=== PATIENT | female | born 1990 | race Two or more races ===

== ENCOUNTER 2023-08-20 10:38 | Emergency (ER) | payer OTHER, SELFPAY ==
[2023-08-20 10:39] VITALS: BMI 18.0
[2023-08-20 10:42] VITALS: BP 117/78
--- NOTE | 2023-08-20 11:21 | ED.GENMED ---
Addendum entered and electronically signed by Chloe Ribeiro PA-C 08/23/23 18:05:
08/23/23: Vaginal culture results noted. Positive for group B strep. Patient with negative test at visit. No indication for treatment at this time.
Original Note:
History of Present Illness
<Chloe Ribiero PA-C - Last Filed: 08/20/23 17:41>
General
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
Source: patient
Exam Limitations: none
Time Seen by Provider: 08/20/23 11:04
Nursing documentation reviewed up to this point in time: agreed with
Travel History
Have you had any contact with someone who has COVID-19?: No
Do you have any symptoms of coronavirus? Fever > 100 degrees, chills, cough, shortness of breath, sore throat, loss of taste or smell, muscle aches, or headache?: No
History of Present Illness
History of Present Illness:
Patient is a 33-year-old female with history of tubal ligation presenting for evaluation of vaginal discomfort. Patient states that intermittently over the past 2 months she has had vaginal pain worse after intercourse. Last night around 12AM,
during intercourse with her she reports onset of pain which has been constant since. She describes it as a squeezing and sharp pain within the vagina with some radiation to her back. Patient does also endorse recent change in quantity and
quality of vaginal discharge. She has noticed an odor associated with discharge and vaginal itching. Patient denies any abnormal vaginal bleeding. In addition, she has noticed recent urinary frequency and urgency. Patient denies any fever, chills,
abdominal pain. Patient denies any nausea, vomiting, diarrhea.
Patient is monogamous with her . No history of STDs.
Patient was last seen by her OBGYN about 1 year ago.
Past History
<Chloe Ribeiro PA-C - Last Filed: 08/20/23 17:41>
Past History
ED Past Medical History: None
ED Past Surgical History:
Social History
Tobacco: Non-smoker
Alcohol: None
Drug: None
Personal:
Living: with family
Review of Systems
<Chloe Ribeiro PA-C - Last Filed: 08/20/23 17:41>
Review of Systems
Allergies reviewed?: Yes
All Other Systems: ROS reviewed and negative except as documented in HPI and ROS
Phy Exam
<Chloe Ribeiro PA-C - Last Filed: 08/20/23 17:41>
Physical Exam
Physical Exam:
Vitals: Patient's vital signs are stable. Afebrile
General: Patient is well appearing, no acute distress
Skin: Warm and dry, no rashes or lesions
Head: Normocephalic, atraumatic
Eyes: Sclera nonicteric. EOMs intact. No nystagmus.
Throat: Protecting airway
Neck: Normal ROM, no cervical spine tenderness, no meningismus
Cardiac: Regular rate and rhythm, no murmurs.
Pulm: Normal respiratory effort, no wheezes, rales, rhonchi heard on exam.
Abdomen: Abdomen soft. very mild tenderness in suprapubic region without rebound tenderness or guarding. No CVA tenderness
Pelvic: Mild discomfort throughout pelvic examination without any true cervical motion tenderness. Copious thin odom vaginal discharge. Cervix closed otherwise no abnormalities. No surrounding vulvar erythema or edema.
Extremities: No evidence of cyanosis or edema. DP pulses palpable and equal bilaterally
Neuro: AAOx3. CN II-XII intact. No focal neurologic deficits.
Psychiatric: Normal affect.
Course
<Chloe Ribeiro PA-C - Last Filed: 08/20/23 17:41>
Orders/Labs/Results
Orders:
Orders
08/20/23 11:34
Test Result ONCE
05/19/24 11:36
Ketorolac [Toradol] 15 mg IM NOW STA
US Pelvis W Transvag Combined Urgent
Comment:
Reason For Exam: Pelvic pain
08/20/23 11:44
Test Result ONCE
08/20/23 12:25
HCG, Urine Qualitative Screen Urgent
Date Specimen was Collected: 08/20/23
Time Specimen was Collected: 12:17
Urinalysis Reflex To Culture Urgent
Date Specimen was Collected: 08/20/23
Time Specimen was Collected: 12:18
Chlamydia/GC by PCR Urgent
MEI Source: Endo-Cervical
Specimen Description:
Source:: ENDOCERVICAL
Date Specimen was Collected: 08/20/23
Time Specimen was Collected: 12:17
Genital Culture Urgent
MEI Source: Vagina
Specimen Description:
Date Specimen was Collected: 08/20/23
Time Specimen was Collected: 12:17
08/20/23 14:32
MetroNIDAZOLE [Flagyl] 500 mg PO NOW STA
Vital Signs
Initial and Last Documented VS:
Initial Vital Signs
Temp Pulse Resp BP Pulse Ox
98.8 F 62 20 117/78 100
08/20/23 10:42 08/20/23 10:42 08/20/23 10:42 08/20/23 10:42 08/20/23 10:42
Last Documented Vital Signs
Temp Pulse Resp BP Pulse Ox
98.8 F 62 20 117/78 99
08/20/23 10:42 08/20/23 10:42 08/20/23 10:42 08/20/23 10:42 08/20/23 14:15
Dorothylt;Constantino Valles DO - Last Filed: 08/20/23 12:52>
Orders/Labs/Results
Orders:
Orders
08/20/23 11:34
Test Result ONCE
08/20/23 11:36
Ketorolac [Toradol] 15 mg IM NOW STA
US Pelvis W Transvag Combined Urgent
Comment:
Reason For Exam: Pelvic pain
08/20/23 11:44
Test Result ONCE
08/20/23 12:25
HCG, Urine Qualitative Screen Urgent
Date Specimen was Collected: 08/20/23
Time Specimen was Collected: 12:17
Urinalysis Reflex To Culture Urgent
Date Specimen was Collected: 08/20/23
Time Specimen was Collected: 12:18
Chlamydia/GC by PCR Urgent
MEI Source: Endo-Cervical
Specimen Description:
Source:: ENDOCERVICAL
Date Specimen was Collected: 08/20/23
Time Specimen was Collected: 12:17
Genital Culture Urgent
MEI Source: Vagina
Specimen Description:
Date Specimen was Collected: 08/20/23
Time Specimen was Collected: 12:17
08/20/23 14:32
MetroNIDAZOLE [Flagyl] 500 mg PO NOW STA
Vital Signs
Initial and Last Documented VS:
Initial Vital Signs
Temp Pulse Resp BP Pulse Ox
98.8 F 62 20 117/78 100
08/20/23 10:42 08/20/23 10:42 08/20/23 10:42 08/20/23 10:42 08/20/23 10:42
Last Documented Vital Signs
Temp Pulse Resp BP Pulse Ox
98.8 F 62 20 117/78 99
08/20/23 10:42 08/20/23 10:42 08/20/23 10:42 08/20/23 10:42 08/20/23 14:15
<Chloe Ribeiro PA-C - Last Filed: 08/20/23 17:41>
MDM/Problems Addressed
Differential Diagnosis Includes:
Not limited to: UTI, pyelonephritis, bacterial vaginosis, GC/Chlamydia, PID, tubo-ovarian abscess, ectopic , endometriosis, uterine fibroids
MDM/Problems Addressed:
Patient is a 33 year old female presenting with vaginal discomfort and associated changes in vaginal discharge. Patient with both pain, itching, increasing amount of vaginal discharge with associated odor. Also mentions some urinary frequency.
Patient is monogamous relation with her . No history of STDs. No fever, chills, abdominal pain. Vital signs are stable. She is afebrile. Patient is generally well-appearing, nontoxic. Physical exam as above. On pelvic exam - there is a
copious amount of thin odom vaginal discharge noted. Clinically suspicious for bacterial vaginosis in setting of symptoms. Vaginal culture and endocervical swab obtained and sent to lab. Do not suspect gonorrhea or chlamydia. Given urinary
symptoms we will check urinalysis and ultrasound. Toradol for pain. Patient very minimally tender and nontoxic-appearing�do not suspect tubo-ovarian abscess.
1:15PM: In to reassess patient at bedside. Nurse also at bedside administering IM Toradol. Will reassess shortly
2:10 PM: In to reassess patient at bedside. Much more comfortable following toradol. Just returned from US - report pending. Urinalysis noted. test negative clear urine with no evidence of infection or contamination.
Ultrasound shows no evidence of acute abnormality in pelvis. Flow documented to both ovaries. Patient does remain more comfortable and in no apparent distress following Toradol. Although culture pending�high clinical suspicion for bacterial
vaginosis. Will prophylactic treat with metronidazole. Patient aware of interaction with alcohol and will avoid. Patient will follow-up with [facility] this week. Stable for discharge. All questions answered. Return precautions discussed at length.
Chronic conditions affecting care:
History of tubal ligation
Acute Exacerbation and/or Progression of Chronic Illness:
N/A
<Chloe Ribeiro PA-C - Last Filed: 08/20/23 17:41>
*Radiology
Radiology exam reviewed: radiology read reviewed
*Pulse Oximetry
Patient hypoxic: no
*EKG
Interpreted by ED Provider?: NA
*Administrative Tech Interpretation
Rate: Administrative Tech- N/A
*Critical Care Note
Total Time (30-74mins, 75-104mins- exclusive of procedures): Not Applicable
ED Attending Note
<Chloe Ribeiro PA-C - Last Filed: 08/20/23 17:41>
-
Portions of this chart may have been created with voice recognition software.� Occasional wrong word or��sound alike� substitutions may have occurred due to the inherent limitations of voice recognition software.
<Constantino Valles DO - Last Filed: 08/20/23 12:52>
ED Attending Note
Patient seen and examined by attending physician: Yes
I performed the substantive portion of visit, reviewed & personally made and approve the management plan that is documented in note by myself or MADALYN.: Yes
I performed a history and physical exam of patient and discussed management with resident, I reviewed resident's note and agree with documented findings and plan of care.: Yes
ED Attending Note:
I evaluated the patient bedside. The patient is comfortable in appearance. Urinalysis unremarkable.
Discharge Plan
Departure
Patient Disposition: Home (Routine Discharge)
Date of Disposition: 08/20/23
Time of Disposition: 14:33
Patient with high blood pressure during this ER visit?: No
Condition: Good
Covid-19: Not Applicable
Discharge Problem:
Vaginal discomfort
Instructions: Vaginal discharge, Bacterial Vaginosis ED
Prescriptions:
New
metronidazole 500 mg tablet
500 mg PO BID 7 Days Qty: 14 0RF
No Action
naproxen 500 mg tablet
500 mg PO BID PRN (Reason: pain) Qty: 20 0RF
ibuprofen 600 mg tablet
600 mg PO Q6H PRN (Reason: pain) Qty: 14 0RF
doxycycline hyclate 100 mg tablet
100 mg PO BID 7 Days Qty: 14 0RF
Referrals:
NONE,* [Family Provider] -
Activity Restrictions/Additional Instructions:
RETURN TO THE EMERGENCY DEPARTMENT WITH ANY HIGH FEVERS, SEVERE ABDOMINAL PAIN, INTRACTABLE NAUSEA/VOMITING, HEAVY VAGINAL BLEEDING, WORSENING IN CURRENT SYMPTOMS, OR ANY OTHER CONCERNS
-A prescription has been sent to your pharmacy for metronidazole. You should take this twice per day for the next 7 days. YOU CANNOT DRINK ANY ALCOHOL WHILE ON THIS MEDICATION. Stay well-hydrated.
-You can take motrin as needed for discomfort.
-As discussed�it is important that you follow-up with your [facility] in the next few days for further evaluation/management
Interventions
Interventions:
*Risk Screen - Suicide Last Done: 08/20/23 10:42
*General Assessment Last Done: 08/20/23 10:42
*Neglect/Abuse Screening Last Done: 08/20/23 10:42
ED- Fall Risk Assessment Last Done: 08/20/23 11:57
ED-Female Genitourinary Assessment Last Done: 08/20/23 11:57
Discharge Date and Time
Print Language: ITALIAN
[2023-08-20 12:48] LABS: HCG, Urine Qualitative Screen Negative; Urine Albumin Negative (Neg - Trace); Urine Bilirubin Negative (Negative); Urine Character Clear (Clear); Urine Color Yellow; Urine Glucose Negative (Negative); Urine Ketone Negative (Negative); Urine Leukocyte Negative (Negative); Urine Nitrite Negative (Negative); Urine Occult Blood Negative (Negative); Urine Urobilinogen Negative (Neg - 1+)
[2023-08-20] MEDS: TORADOL 15 MG IM (13:11)
[2023-08-20] MEDS: FLAGYL 500 MG PO (14:54)
== END 2023-08-20 16:00 | disposition home or self-care (01) ==
LOC: EMR 10:38
PROVIDERS: Physician Assistant; EMERGENCY PHYSICIAN Emergency Medicine
DX: R10.2 Pelvic and perineal pain (principal); Z98.51 Tubal ligation status
CPT/HCPCS: 99284; 96374; 76830; 76856; 81003; 81025; 87070; 87077; 87147; 87491; 87591